=== PATIENT | female | born 1975 | race Caucasian/White ===

== ENCOUNTER → 2025-01-05 | Emergency (ER) | payer BC ==
[~2025-01-05] VITALS: Ht 167.6 cm; Wt 68.0 kg
[~2025-01-05] MED LIST: KETO10TA2 PO; TRAMADOL HCL 50 MG TABLET PO ONE
== END | disposition home or self-care (01) ==
LOC: ER 17:00
DX: S92.812A Other fracture of left foot, initial encounter for closed fracture (principal); W19.XXXA Unspecified fall, initial encounter; Y93.89 Activity, other specified; Y92.89 Other specified places as the place of occurrence of the external cause; Y99.8 Other external cause status; Z88.1 Allergy status to other antibiotic agents